=== PATIENT | male | born 1970 | race Two or more races ===

== ENCOUNTER 2017-03-12 12:36 | Emergency (ER) | payer OTHER ==
[2017-03-12] MEDS ORDERED: HYDROMORPHONE HCL INJ/PF 2 MG/ML AMPULE ONE (13:11)
[2017-03-12] MEDS ORDERED: HYDROMORPHONE HCL INJ/PF 2 MG/ML AMPULE IV ONE ×2 (13:12→14:04)
[2017-03-12] MEDS ORDERED: DIPH/PERTUSS(ACELL)/TETANUS VAC/PF 0.5 ML SYR (>=10YO) IM ONE (13:12)
[2017-03-12] MEDS ORDERED: PIPERACILLIN/TAZOBACTAM 3.375 GM VIAL IV ONE (13:38)
--- NOTE | 2017-03-12 13:44 | ER Document Report ---
ED Trauma/MVC - General Stated Complaint: RIGHT HAND INJURY Time Seen by Provider: 03/12/17 12:47 Mode of Arrival: Medic Information source: Patient Notes: This is a 47-year-old man with no medical problems who presents to the emergency room after traumatic amputation of his right third and fourth digits. Patient was working with a table saw. The injury occurred at noon. 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 - HPI Occurred: Just prior to arrival Where: Work Mechanism: Other Context: denies: Single-vehicle accident, Multi-vehicle accident, Vehicle rollover, Ambulatory on scene, Ejected from vehicle, Entrapment, Prolonged extrication, Fatality (same vehicle), Fatality (other vehicle), Other Impact of vehicle: No: Head-on, Rear-ended, T-boned, T-struck, School [employer] side, Passenger side, Other Protective devices: No: None, Air bag deployment, Helmet, Knee/elbow pads, Lap belt, Lap/shoulder belt, Leather chaps/jacket, Other Loss of consciousness: No: None, Brief, Amnestic to events, Remembers events, Unresponsive for EMS, Remembers arriving in ED, Unresponsive in ED Quality of pain: Dull Severity: Severe Pain level: 5 Location of injury/pain: Hand Prehospital interventions: No: C-collar, Backboard, SHAN, IV, IO, BVM, [place] airway, Nasal airway, Oral airway, Intubation, Needle decompression, Splints, Wound care, Analgesia, Cardiac medications, CPR, Defibrillation, Other [place] Coma Scale Eye Opening: Spontaneous [place] Coma Scale Verbal: Oriented [place] Coma Scale Motor: Obeys Commands [place] Coma Scale Total: 15 Past Medical History - Social History Smoking Status: Never Smoker Cigarette use (# per day): No Chew tobacco use (# tins/day): No Frequency of alcohol use: None Drug Abuse: None Lives with: Family Family History: Reviewed & Not Pertinent Patient has suicidal ideation: No Patient has homicidal ideation: No - Medical History Medical History: Negative Surgical Hx: Negative Review of Systems - Review of Systems Constitutional: No symptoms reported EENT: No symptoms reported Cardiovascular: No symptoms reported Respiratory: No symptoms reported Gastrointestinal: No symptoms reported Genitourinary: No symptoms reported Male Genitourinary: No symptoms reported Musculoskeletal: See HPI Skin: See HPI Hematologic/Lymphatic: No symptoms reported Neurological/Psychological: No symptoms reported Physical Exam - Vital signs Notes: Physical exam: GENERAL: 47-year-old man, alert and oriented 3. He does have a tourniquet applied to the right forearm. The right hand is wrapped in gauze. The fingers are brought in by EMS in a bed with ice. HEAD: Atraumatic, normocephalic. EYES: Pupils equal round and reactive to light, extraocular movements intact, sclera anicteric, conjunctiva are normal. ENT: Moist mucous membranes. NECK: Normal range of motion, supple LUNGS: Breath sounds clear to auscultation bilaterally and equal. No wheezes rales or rhonchi. HEART: Regular rate and rhythm without murmurs, rubs or gallops. ABDOMEN: Soft, normoactive bowel sounds. No tenderness to palpation. No guarding, no rebound. No masses appreciated. EXTREMITIES: Patient has a tourniquet on his right forearm. Examination of the right hand reveals traumatic amputations through the PIP joints of the third and fourth digit. There is a laceration through the distal finger of the fifth digit. The patient has difficulty extending the fifth digit. NEUROLOGICAL: Cranial nerves II through XII grossly intact. Normal speech, normal gait. PSYCH: Normal mood, normal affect. SKIN: Warm, Dry, normal turgor, no rashes or lesions noted. Course - Re-evaluation Re-evalutation: 03/12/17 13:40 The amputated digits were taken out of the bag of ice placed in wet gauze placed in a bag and that bag was placed in a bag of ice. The hand was inspected. X-rays reveal that the amputations go through the PIP of the right third and fourth digit. IV Zosyn was given to the patient IM Tdap was given to the patient IV Dilaudid for pain Dr. delacruz of orthopedics is in the OR and the case. I was able to get a hold of Dr. Owens on the phone but he is out of town: We discussed the case and he recommended transferring to [place] for possible reimplantation. I discussed the case with the plastic surgeon at [place] who recommended transfer ER to ER for possible reimplantation. I had a in-depth discussion with the patient about the reasons for transfer. I told him he would be evaluated for possible reimplantation, but there are times when this is not possible and they may not be able to save the digits. He understands that he may not be a candidate for reimplantation surgery. 03/12/17 15:28 - Diagnostic Test Radiology reviewed: Image reviewed, Reports reviewed - Traumatic amputations of the right third and fourth digit through the [facility] Critical Care Note - Critical Care Note Total time excluding time spent on procedures (mins): 60 Discharge - Discharge Clinical Impression: Amputation: Right 3rd & 4th finger Condition: Stable Disposition: [facility]
[2017-03-12 16:01] VITALS: BP 140/94
== END 2017-03-12 16:11 | disposition short-term general hospital (02) ==
LOC: ER 12:36
DX: S69.91XA Unspecified injury of right wrist, hand and finger(s), initial encounter (principal); S68.122A Partial traumatic metacarpophalangeal amputation of right middle finger, initial encounter; S68.124A Partial traumatic metacarpophalangeal amputation of right ring finger, initial encounter; W45.8XXA Other foreign body or object entering through skin, initial encounter; W29.8XXA Contact with other powered hand tools and household machinery, initial encounter
CPT/HCPCS: 99291; 90471; 96375; 96365; 73130; 90715; J1170; J2543